=== PATIENT | female | born 1955 | race Caucasian/White ===

== ENCOUNTER 2023-10-05 20:24 | Emergency (ER) | payer OTHER, MEDICAID ==
[~2023-10-05] VITALS: Ht 167.6 cm; Wt 103.0 kg
[2023-10-05 20:44] VITALS: BP_SYST 138; PULSE 73; RESP 20; TEMP 98; O2SAT 98
[2023-10-05 22:46] VITALS: BP_SYST 161; PULSE 65; RESP 15; TEMP 98.1; O2SAT 97
== END 2023-10-05 22:46 | disposition home or self-care (01) ==
LOC: SED 20:24
DX: S10.83XA Contusion of other specified part of neck, initial encounter (principal); S40.011A Contusion of right shoulder, initial encounter; S60.012A Contusion of left thumb without damage to nail, initial encounter; R51.9 Headache, unspecified; E11.9 Type 2 diabetes mellitus without complications; I10 Essential (primary) hypertension; V89.2XXA Person injured in unspecified motor-vehicle accident, traffic, initial encounter; Y93.89 Activity, other specified; Y92.89 Other specified places as the place of occurrence of the external cause; Y99.8 Other external cause status
CPT/HCPCS: 70450-TC; 72125-TC; 73030; 99284